=== PATIENT | male | born 1965 | race Caucasian/White ===

== ENCOUNTER 2019-04-17 10:50 | Emergency (ER) | payer MEDICAID ==
[~2019-04-17] VITALS: Ht 182.9 cm; Wt 99.5 kg
--- NOTE | 2019-04-17 12:05 | NUR ---
RING TO RIGHT 4TH DIGIT REMOVED BY KEO WITH RING CUTTER
--- NOTE | 2019-04-17 12:06 | NUR ---
CSM TO RIGHT 4TH DIGIT WNL, BILATERAL RADIAL PULSES WNL 2+
[2019-04-17 12:07] VITALS: BP 129/65
== END 2019-04-17 12:10 | disposition home or self-care (01) ==
LOC: ER 10:51
DX: S60.454A Superficial foreign body of right ring finger, initial encounter (principal); J45.909 Unspecified asthma, uncomplicated; F32.9 Major depressive disorder, single episode, unspecified; F20.9 Schizophrenia, unspecified; F12.90 Cannabis use, unspecified, uncomplicated; F15.90 Other stimulant use, unspecified, uncomplicated; F10.99 Alcohol use, unspecified with unspecified alcohol-induced disorder; F17.200 Nicotine dependence, unspecified, uncomplicated; W49.04XA Ring or other jewelry causing external constriction, initial encounter; Y93.89 Activity, other specified; Y92.89 Other specified places as the place of occurrence of the external cause; Y99.8 Other external cause status; Y90.9 Presence of alcohol in blood, level not specified
CPT/HCPCS: 99284

== ENCOUNTER 2019-08-06 15:00 | Emergency (ER) | payer MEDICAID ==
[~2019-08-06] VITALS: Ht 177.8 cm; Wt 81.8 kg
[2019-08-06 15:02] VITALS: BP 152/84
[2019-08-06] MEDS ORDERED: potassium Cl 20 mEq SR tablet PO STA (15:16)
[2019-08-06] MEDS ORDERED: POTA10CA44 PO (16:02)
== END 2019-08-06 16:12 | disposition home or self-care (01) ==
LOC: ER 15:01
DX: E87.6 Hypokalemia (principal); J45.909 Unspecified asthma, uncomplicated; F12.90 Cannabis use, unspecified, uncomplicated; F15.90 Other stimulant use, unspecified, uncomplicated; E11.9 Type 2 diabetes mellitus without complications; Z56.0 Unemployment, unspecified; Z79.899 Other long term (current) drug therapy
CPT/HCPCS: 93005; 99283

== ENCOUNTER 2025-06-13 00:26 | Emergency (ER) | payer SELFPAY ==
[~2025-06-13] VITALS: Ht 182.9 cm; Wt 88.0 kg
[2025-06-13 00:53] VITALS: BP 110/63; PULSE 95; RESP 22; O2SAT 95
[2025-06-13 05:35] VITALS: TEMP 98.1
== END 2025-06-13 05:37 | disposition left against medical advice (07) ==
LOC: ER 00:26
DX: R50.9 Fever, unspecified (principal); R05.9 Cough, unspecified; R68.89 Other general symptoms and signs; Z53.21 Procedure and treatment not carried out due to patient leaving prior to being seen by health care provider
CPT/HCPCS: 99281

== ENCOUNTER 2025-06-20 13:48 | Emergency (ER) | payer MEDICAID ==
[~2025-06-20] VITALS: Ht 177.8 cm; Wt 83.6 kg
[2025-06-20 14:02] VITALS: BP 130/77; PULSE 90; RESP 18; TEMP 97.8; O2SAT 98
--- NOTE | 2025-06-20 14:54 | Physician Documentation ---
History of Present Illness ~ Chief Complaint: Sore Throat Stated Complaint: SEE CHIEF COMPLAINT Time Seen by MD: 14:27 Primary Medical Doctor: NOEMI RIVERA HPI Patient is a very pleasant 59-year-old male that presents to the emergency department for evaluation of sore throat x2 days. Patient reports possible fevers but has not taken his temperature. Patient denies chills nausea vomiting diarrhea at this time. Patient denies any difficulty swallowing difficulty breathing. Patient denies any other symptoms at this time. Medication Reconciliation Allergies: Coded Allergies: No Known Allergies (Unverified , 06/20/25) Past Medical History Past Medical History: Asthma, Pneumonia, Depression, Schizophrenia Past Surgical History: no surgical history Alcohol Use: Other Drug Use: marijuana, methamphetamine Occupation: unemployed Review of Systems ROS As stated above in the HPI, otherwise all systems are reviewed and negative. Physical Exam Vital Signs: Temperature: 97.8, Source: Temporal, Heart Rate: 90, Respiratory Rate: 18, BP: 130/77, Pulse Oximetry: 98, Weight: 83.640 Oxygen Flow Rate: 0 Physical Exam VITALS: Reviewed and as above. GENERAL: Alert, no apparent distress. HEENT: Normocephalic, atraumatic, PERRL, EOMI, dry mucosa, no erythema RESPIRATORY: Lungs clear, normal breath sounds, no respiratory distress. CHEST: No accessory muscle use, no retractions CV: Regular rate, rhythm, no edema, no murmur, No: JVD GI: Soft, non-tender, bowels sounds present, no rebound, guarding, or rigidity BACK: No CVA tenderness, or swelling MUSCULOSKELETAL No deformities, no edema SKIN: Warm and dry, no rash NEURO: Oriented x4, No motor or sensory deficit PSYCH: Normal mood and affect, no agitation Progress Results/Orders Results/Orders Orders - DADA LIM Covid19 Binax Poc Result Entry (06/20/25 14:41) Cult Throat + R/O Beta Strep (06/20/25 15:14) Completed Orders - DADA LIM Influenza Type A&B Rapid Test (06/20/25 14:41) Strep A Rapid (06/20/25 14:41) Vital Signs 06/20/25 14:02 Temp 97.8 Pulse 90 Resp 18 B/P (MAP) 130/77 Pulse Ox 98 O2 Flow Rate 0 Laboratory Tests Test 06/20/25 14:52 Influenza Type A Antigen Negative Influenza Type B Antigen Negative SARS-CoV-2 Antigen (Rapid) Negative Group A Streptococcus Rapid Negative Medical Decision Making Additional information obtaine: other Findings Medical Decision-Making (MDM) Discharge Note Patient: 59-year-old male Presenting Complaint: Sore throat for 2 days Associated Symptoms: Possible fevers, no chills, nausea, vomiting, or diarrhea Assessment: Patient presented with acute sore throat and possible fever. No concerning features such as difficulty swallowing, drooling, neck swelling, or respiratory distress. No gastrointestinal symptoms. Physical exam and history did not reveal findings suggestive of bacterial pharyngitis (e.g., tonsillar exudates, tender cervical lymphadenopathy, scarlatiniform rash, palatal petechiae, or severe constitutional symptoms). Modified Centor criteria not met for high suspicion of group A Streptococcus (GAS). Diagnostics: Rapid antigen tests for influenza, COVID-19, and GAS were all negative. No further testing indicated given low clinical suspicion and negative results. Diagnosis: Viral pharyngitis most likely etiology given clinical presentation and negative bacterial/viral rapid tests. No evidence of bacterial infection requiring antibiotics. Management: No antibiotics prescribed, in accordance with guidelines for viral pharyngitis and antimicrobial stewardship. Supportive care recommended: hydration, rest, antipyretics as needed, salt water gargles, and throat lozenges for symptomatic relief. Education provided regarding the self-limited nature of viral pharyngitis and the lack of benefit/harm of unnecessary antibiotics. Advised to return for evaluation if symptoms worsen, persist beyond 5-7 days, or new concerning features develop (e.g., severe pain, difficulty swallowing, neck swelling, respiratory distress). Disposition: Patient stable for discharge. No evidence of bacterial pharyngitis or complications. Follow-up as needed for persistent or worsening symptoms. Ear Diff. Dx: Considerations: Include: Abrasion, Cerumen impaction, Foreign body, Otitis externa, Barotrauma, Otitis media, Perforation, Referred pain- dental, Referred pain-pharyngitis, Referred pain-sinusitis, Referred pain-TMJ syn., Tympanic Membrane Injury, Other Eye Diff. Dx: Considerations: Include: Chalazoin, Conjuctivits-allergic, Conjuctivitis-bacterial, Conjuctivits-chlamydial, Conjuctivitis-viral, Corneal abrasion, Corneal laceration, Corneal ulceration, Foreign body-conjuctiva, Foreign body-corneal, Foreign body-intraocular, Foreign body-lid, Glaucoma, Globe rupture, Hordeolum, Iritis, Orbital cellulitis, Periobital cellulitis, Retinal artery occulsion, Retinal vein occlusion, Rust ring, Subconjunctival hem, Ultraviolet keratitis, Uveitis, Vitreous hemorrhage, Other Nose Diff. Dx: Considerations: Include: Abrasion, Anterior nasal bleed, Avu lsion, Contusion, Coagulopathy, Fracture-nasal bone, Fracture-septum, Hypertension, Laceration, Other, Posterior nasal bleed, Retained foreign body, Septal hematoma Tooth Diff. Dx: Considerations: Include: Alveolar fracture, Aveolar osteitis, ANUG, Facial cellulitis, Periapical abscess, Periodontal abscess, Post- extraction bleeding, Pulpitis, Trigeminal neuralgia, Tooth-avulsion, Tooth- eruption, Tooth-fracture, Tooth-subluxation, Other Throat Diff Dx: Considerations: Include: AIDS, Epiglottitis, Esophageal candidiasis, Hand foot mouth disease, Herpangina, Herpetic stomatitis, Herpes simplex, Infection mononucleosis, Immunodeficiency, Jah's angina, Peritonsillar abscess, Peritonsillar cellulitis, Pharyngitis-diphtheria, Pharyngitis-strepococcal, Pharyngitis-viral, Thrush, URI, Other Departure Disposition: 01 HOME / SELF CARE / HOMELESS Impression: Primary Impression: Irritation of pharynx Additional Impressions: Sore throat Pharyngitis Condition: Stable Discharge Instructions: Pharyngitis Additional Instructions: You were seen in the emergency department for a sore throat that started two days ago. Your tests for strep throat, COVID-19, and influenza were all negativ e. Based on your symptoms and test results, your diagnosis is viral pharyngitis (a sore throat caused by a virus). What to Expect: Most sore throats from viruses get better on their own in less than a week. Antibiotics are not needed for viral infections and will not help you feel better or recover faster. How to Feel Better: Rest and drink plenty of fluids to stay hydrated. You can use [id number] medicines like acetaminophen (Tylenol) or ibuprofen (Advil, Motrin) to help with pain or fever. Throat lozenges, warm salt water gargles, and cool drinks may help soothe your throat. Avoid smoking and other irritants. When to Seek Medical Care: Call your doctor or return to the emergency department if you have: Trouble breathing or swallowing Severe pain that does not get better High fever that lasts more than 3 days Neck swelling or stiffness New symptoms like rash, drooling, or difficulty opening your mouth Other Information: Most people recover fully without any special treatment. Using antibiotics when they are not needed can cause side effects and make it harder to treat infections in the future. If you have any questions or your symptoms get worse, please contact your healthcare provider. Referrals: NO PRIMARY CARE PROVIDER (PCP) Education Educated: Patient Educated regarding: diagnosis, treatment, need for follow up Signature Scribe Signature: A Attestation: Scribed for Dada Lim by FREDY Maria . 06/20/25 15:55 DADA LIM Jun 20, 2025 14:54
[2025-06-20 15:14] LABS: STREP A SCREEN NEGATIVE (Neg)
[2025-06-20 15:15] LABS: INFLUENZA TYPE A ANTIGEN RAPID NEGATIVE (Negative); INFLUENZA TYPE B ANTIGEN RAPID NEGATIVE (Negative)
== END 2025-06-20 16:12 | disposition home or self-care (01) ==
LOC: ER 13:49
DX: J39.2 Other diseases of pharynx (principal); J02.9 Acute pharyngitis, unspecified; J45.909 Unspecified asthma, uncomplicated; F32.A Depression, unspecified; F20.9 Schizophrenia, unspecified; Z56.0 Unemployment, unspecified; Z20.822 Contact with and (suspected) exposure to COVID-19
CPT/HCPCS: 36415; 87081; 87804; 87811; 87880; 99283